=== PATIENT | male | born 1975 | race African-American/Black ===

== ENCOUNTER 2016-12-03 22:40 | Emergency (ER) | payer MEDICAID ==
[~2016-12-03] VITALS: Ht 172.7 cm; Wt 68.0 kg
[~2016-12-03 22:40] MED LIST: ACET-2708; NAPR220C15
[2016-12-04 01:25] VITALS: BP 120/90
== END 2016-12-04 06:20 | disposition left against medical advice (07) ==
LOC: ER 12-04 03:49
DX: R07.9 Chest pain, unspecified (principal); Z53.21 Procedure and treatment not carried out due to patient leaving prior to being seen by health care provider

== ENCOUNTER 2020-09-25 10:09 | Emergency (ER) | payer MEDICAID ==
[~2020-09-25] VITALS: Ht 170.2 cm; Wt 68.0 kg
[2020-09-25 10:25] VITALS: BP 121/77
[2020-09-25] MEDS ORDERED: AZIT250T12 PO (11:14)
[2020-09-25] MEDS ORDERED: NAPR-681 PO (11:14)
[2020-09-25] MEDS ORDERED: ALBU18HF2 IH (11:14)
== END 2020-09-25 11:21 | disposition home or self-care (01) ==
LOC: ER 10:09
DX: J20.9 Acute bronchitis, unspecified (principal)
CPT/HCPCS: 99283

== ENCOUNTER 2024-09-25 08:04 | Emergency (ER) | payer MEDICAID ==
[~2024-09-25] VITALS: Ht 172.7 cm; Wt 66.0 kg
[~2024-09-25 08:04] MED LIST changes: +ALBU18HF2 IH; +AZIT250T12 PO; +NAPR-681 PO
[2024-09-25 08:12] VITALS: O2SAT 98
[2024-09-25 09:03] LABS: BASOPHILS % 0.7 % (0.0-2.0); EOSINOPHILS % 0.9 % (0.0-5.0); HEMATOCRIT. 41.8 % (42.0-52.0); HEMOGLOBIN. 14.4 g/dL (14.0-18.0); LYMPHOCYTES % 53.4 % (20.0-50.0); MEAN CORPUSCULAR HGB CONC 34.5 g/dL (31.0-37.0); MEAN CORPUSCULAR VOLUME 95.6 fL (80.0-94.0); MONOCYTES % 6.8 % (2.0-8.0); NEUTROPHILS % 38.2 % (40.0-76.0); PLATELET 375 x1000/uL (130-400); RED BLOOD CELL COUNT 4.37 mill/uL (4.7-6.1); RED CELL DISTRIBUTION WIDTH 13.2 % (11.6-14.6); WHITE BLOOD COUNT 8.2 x1000/uL (4.5-11.0)
[2024-09-25 09:10] LABS: CHLORIDE 101 mEq/L (98-107); POTASSIUM 3.8 mEq/L (3.5-5.1); SODIUM 136 mEq/L (136-145)
[2024-09-25 09:12] LABS: CALCIUM 10.2 mg/dL (8.7-10.4); CARBON DIOXIDE 22 mEq/L (21-32)
[2024-09-25 09:17] LABS: CREATININE 0.7 mg/dL (0.6-1.3); GLUCOSE 95 mg/dL (70-105); UREA NITROGEN BLOOD 7 mg/dL (9-23)
[2024-09-25 09:19] LABS: ALANINE AMINOTRANSFERASE 31 IU/L (10-49); ALBUMIN 5.1 g/dL (3.2-4.8); ASPARTATE AMINOTRANSFERASE 31 IU/L (<34); BILIRUBIN DIRECT 0.1 mg/dL (<=3.0); BILIRUBIN TOTAL 0.4 mg/dL (0.1-1.0); PROTEIN TOTAL 8.2 g/dL (6.0-8.3)
[2024-09-25] MEDS: MAGNESIUM/ALUMINUM HYDROXIDE/SIMETHICONE 30ML UDC PO ONE (09:31)
[2024-09-25] MEDS ORDERED: FAMO20TA8 MT (10:27)
[2024-09-25] MEDS ORDERED: MAG-55 MT (10:27)
[2024-09-25 11:03] VITALS: BP 132/86; PULSE 82; RESP 12; TEMP 36.6; O2SAT 100
== END 2024-09-25 11:16 | disposition home or self-care (01) ==
LOC: ER 08:04
DX: R10.9 Unspecified abdominal pain (principal); Z79.899 Other long term (current) drug therapy; Z88.0 Allergy status to penicillin
CPT/HCPCS: 36415; 74176; 80048; 80076; 85025; 99284

== ENCOUNTER 2024-12-07 12:06 | Emergency (ER) | payer MEDICAID ==
[~2024-12-07] VITALS: Ht 172.7 cm; Wt 68.0 kg
[~2024-12-07 12:06] MED LIST changes: +FAMO20TA8 MT; +MAG-55 MT
[2024-12-07 12:15] VITALS: O2SAT 97
[2024-12-07] MEDS ORDERED: METH4TAB95 MT (14:06)
[2024-12-07] MEDS ORDERED: GUAI400T93 MT (14:06)
[2024-12-07 14:27] VITALS: BP 119/85; PULSE 88; RESP 18; TEMP 36.7; O2SAT 97
== END 2024-12-07 14:28 | disposition home or self-care (01) ==
LOC: ER 12:06
DX: B34.9 Viral infection, unspecified (principal); Z88.0 Allergy status to penicillin; Z79.899 Other long term (current) drug therapy
CPT/HCPCS: 71045; 87070; 87430; 99284